=== PATIENT | male | born 1995 | race Caucasian/White ===

== ENCOUNTER 2024-07-11 22:33 | Emergency (ER) | payer MEDICAID, OTHER ==
[~2024-07-11] VITALS: Ht 177.8 cm; Wt 61.2 kg
[2024-07-11 22:48] VITALS: BP_SYST 130; PULSE 83; RESP 16; TEMP 98; O2SAT 96
[2024-07-11 23:35] VITALS: BP_SYST 122; PULSE 69; RESP 18; O2SAT 99
[2024-07-12] MEDS ORDERED: EPINEPHrine JECT 0.1 MG/ML SYR ONE (01:44)
[2024-07-12] MEDS ORDERED: EPINEPHrine HCL 1 MG/ML VIAL ONE (01:52)
== END 2024-07-12 01:50 | disposition home or self-care (01) ==
LOC: SED 22:33
DX: S01.112A Laceration without foreign body of left eyelid and periocular area, initial encounter (principal); S40.012A Contusion of left shoulder, initial encounter; Y04.0XXA Assault by unarmed brawl or fight, initial encounter; Y93.89 Activity, other specified; Y92.89 Other specified places as the place of occurrence of the external cause; Y99.8 Other external cause status
CPT/HCPCS: 99283; 12013; 73030; J0171